=== PATIENT | female | born 1975 ===

== ENCOUNTER 2016-11-02 13:13 | Emergency (ER) | payer MEDICAID ==
[2016-11-02 13:23] VITALS: BP 118/69; PULSE 68; RESP 16; TEMP 98; O2SAT 100
--- NOTE | 2016-11-02 13:34 | ED PDOC ---
HPI: Skin/Bite Injury Time Seen by Provider: 11/02/16 13:23 Chief Complaint (Nursing): Abnormal Skin Integrity Chief Complaint (Provider): Rash History Per: Patient History/Exam Limitations: no limitations Onset/Duration Of Symptoms: Persistent (1.5 months) Quality Of Symptoms: Itching Additional Complaint(s): Kathi Berry is a 40 year old female that presents to the ED with a chief complaint of an itching rash on her chest and lower legs that she has been experiencing for the past month and a half. She has seen her PMD, who gave her Atarax and ointment for her itching, as well as advised her to go to a data compiler, but she has yet to do so. Past Medical History Reviewed: Historical Data, Nursing Documentation, Vital Signs Vital Signs: Last Vital Signs Temp 98.0 F 11/02/16 13:20 Pulse 68 11/02/16 13:20 Resp 16 11/02/16 13:20 BP 118/69 11/02/16 13:20 Pulse Ox 100 11/02/16 13:54 - Medical History PMH: Back Problems - Surgical History Surgical History: Appendectomy, - Family History Family History: States: Unknown Family Hx - Home Medications Home Medications: Ambulatory Orders Medication Instructions Recorded Naproxen [Naprosyn] 500 mg PO BID #20 tab 01/15/16 tiZANidine [Zanaflex] 4 mg PO Q8H PRN #20 tab 01/15/16 predniSONE [predniSONE Tab] 20 mg PO DAILY #12 tab 11/02/16 - Allergies Allergies/Adverse Reactions: Allergies Allergy/AdvReac Type Severity Reaction Status Date / Time doxycycline Allergy RASH Verified 11/02/16 13:19 Review of Systems Skin: Positive for: Rash (on chest and lower legs) Physical Exam - Reviewed Nursing Documentation Reviewed: Yes Vital Signs Reviewed: Yes - Physical Exam Appears: Positive for: Non-toxic Head Exam: Positive for: ATRAUMATIC, NORMOCEPHALIC Skin: Positive for: Normal Color, Rash (Occasional erythematous papules on chest and lower legs. Approximately 1/4 of them are scabbing. (+) blanching. ) Cardiovascular/Chest: Positive for: Regular Rate, Rhythm. Negative for: Murmur Respiratory: Positive for: Normal Breath Sounds. Negative for: Wheezing Neurologic/Psych: Positive for: Alert, Oriented - ECG O2 Sat by Pulse Oximetry: 100 (RA) Pulse Ox Interpretation: Normal Medical Decision Making Medical Decision Making: Impression: Dermatitis Plan: * Benadryl 50 mg PO Gave patient Rx for Prednisone and advised patient to follow up with data compiler. Stable for discharge home. Scribe Attestation: Documented by Angela Roy, acting as a scribe for Brie Chirinos PA-C. Provider Scribe Attestation: All medical record entries made by the Scribe were at my direction and personally dictated by me. I have reviewed the chart and agree that the record accurately reflects my personal performance of the history, physical exam, medical decision making, and the department course for this patient. I have also personally directed, reviewed, and agree with the discharge instructions and disposition. Disposition - Clinical Impression Clinical Impression: Dermatitis - Patient ED Disposition Is Patient to be Admitted: No Counseled Patient/Family Regarding: Diagnosis, Need For Followup, Rx Given - Disposition Referrals: [facility] [Outside] Disposition: Routine/Home Disposition Time: 13:32 Condition: GOOD Prescriptions: predniSONE [predniSONE Tab] 20 mg PO DAILY #12 tab Instructions: Dermatitis (ED)
== END 2016-11-02 13:50 | disposition home or self-care (01) ==
LOC: H.ER 13:13
DX: L30.9 Dermatitis, unspecified (principal)

== ENCOUNTER 2017-10-12 16:07 | Emergency (ER) | payer OTHER, MEDICAID ==
[2017-10-12 16:13] VITALS: RESP 16; O2SAT 100
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
[2017-10-12 18:32] VITALS: BP 115/77; PULSE 71; TEMP 98.3
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
--- NOTE | 2017-10-13 09:11 | RAD ---
PROCEDURE: Left Knee Radiographs. HISTORY: Pain. COMPARISON: None. FINDINGS: BONES: No acute fracture. JOINTS: Unremarkable. JOINT EFFUSION: None. OTHER FINDINGS: None. IMPRESSION: No demonstrated fracture or dislocation.
== END 2017-10-12 18:32 | disposition home or self-care (01) ==
LOC: H.ER 16:07
DX: S83.92XA Sprain of unspecified site of left knee, initial encounter (principal); V43.52XA Car driver injured in collision with other type car in traffic accident, initial encounter; Y92.410 Unspecified street and highway as the place of occurrence of the external cause